=== PATIENT | male | born 1995 | race Two or more races ===

== ENCOUNTER 2020-02-09 08:59 | Emergency (ER) | payer SELFPAY ==
[2020-02-09] MEDS ORDERED: Ketorolac 30 MG/ML SDV IM ONE (09:18)
[2020-02-09] MEDS ORDERED: Cyclobenzaprine 10 MG Tab PO ONE (09:18)
--- NOTE | 2020-02-09 09:59 | EDM.PDOC ---
ED HPI GENERAL MEDICAL PROBLEM - General Chief Complaint: Back Pain or Injury Stated Complaint: BACK INJURY Time Seen by Provider: 02/09/20 09:52 Source of Information: Reports: Patient History Limitations: Reports: No Limitations - History of Present Illness INITIAL COMMENTS - FREE TEXT/NARRATIVE: 24-year-old male presents today for lower back pain. Patient is new to the gym developing when he went to lower the weight and felt intense pain in his lower back. He states he has pain mostly when trying to stand up which was in turn. Patient has any leg numbness weakness urinary symptoms or saddle anesthesia. Patient denies any direct blows injury to the back. Patient has no other complaints. back Pain Score (Numeric/FACES): 10 - Related Data Allergies Allergy/AdvReac Type Severity Reaction Status Date / Time No Known Allergies Allergy Verified 02/09/20 09:18 Home Meds: Home Meds Cyclobenzaprine HCl 5 mg PO Q8HR 7 Days #21 tablet 02/09/20 [Rx] Naproxen Sodium [Naproxen Sodium ER] 500 mg PO BID 7 Days #14 tablet.er 02/09/20 [Rx] Past Medical History - Past Health History Medical/Surgical History: Denies Medical/Surgical History Social & Family History - Family History Family Medical History: No Pertinent Family History - Caffeine Use Caffeine Use: Reports: Coffee, Energy Drinks, Soda - Recreational Drug Use Recreational Drug Use: No ED ROS GENERAL - Review of Systems Review Of Systems: See Below Constitutional: Reports: No Symptoms HEENT: Reports: No Symptoms Respiratory: Reports: No Symptoms Cardiovascular: Reports: No Symptoms Endocrine: Reports: No Symptoms GI/Abdominal: Reports: No Symptoms : Reports: No Symptoms Musculoskeletal: Reports: Back Pain Skin: Reports: No Symptoms Neurological: Reports: No Symptoms Psychiatric: Reports: No Symptoms Hematologic/Lymphatic: Reports: No Symptoms Immunologic: Reports: No Symptoms ED EXAM, GENERAL - Physical Exam Exam: See Below Exam Limited By: No Limitations General Appearance: Alert, WD/WN Head: Atraumatic Respiratory/Chest: No Respiratory Distress Back Exam: Normal Inspection, Full Range of Motion, Muscle Spasm. No: Paraspinal Tenderness, Vertebral Tenderness Neurological: Alert, Oriented, CN II-XII Intact, Normal Cognition Course - Vital Signs Last Recorded V/S: Last Vital Signs Temp 96.2 F L 02/09/20 09:04 Pulse 95 02/09/20 09:04 Resp 17 02/09/20 09:04 BP 140/80 02/09/20 09:04 Pulse Ox 97 02/09/20 09:04 - Orders/Labs/Meds Meds: Medications Discontinued Medications Generic Name Dose Route Start Last Admin Trade Name Rafael PRN Reason Stop Dose Admin Cyclobenzaprine HCl 5 mg 02/09/20 09:18 02/09/20 09:36 Flexeril PO 02/09/20 09:19 5 mg ONETIME ONE Administration Ketorolac Tromethamine 30 mg 02/09/20 09:18 02/09/20 09:37 Toradol IM 02/09/20 09:19 Not Given ONETIME ONE Departure - Departure Time of Disposition: 09:59 Disposition: Home, Self-Care 01 Condition: Good Clinical Impression: Lumbago - Discharge Information *PRESCRIPTION DRUG MONITORING PROGRAM REVIEWED*: Not Applicable *COPY OF PRESCRIPTION DRUG MONITORING REPORT IN PATIENT SANDRA: Not Applicable Instructions: Acute Back Pain, Adult, Back Exercises, [id number] Referrals: PCP,None [Primary Care Provider] - Additional Instructions: The following information is given to patients seen in the emergency department who are being discharged to home. This information is to outline your options for follow-up care. We provide all patients seen in our emergency department with a follow-up referral. The need for follow-up, as well as the timing and circumstances, are variable depending upon the specifics of your emergency department visit. If you don't have a primary care physician on staff, we will provide you with a referral. We always advise you to contact your personal physician following an emergency department visit to inform them of the circumstance of the visit and for follow-up with them and/or the need for any referrals to a consulting specialist. The emergency department will also refer you to a specialist when appropriate. This referral assures that you have the opportunity for follow-up care with a specialist. All of these measure are taken in an effort to provide you with optimal care, which includes your follow-up. Under all circumstances we always encourage you to contact your private physician who remains a resource for coordinating your care. When calling for follow-up care, please make the office aware that this follow-up is from your recent emergency room visit. If for any reason you are refused follow-up, please contact the [facility] Emergency Department at and asked to speak to the emergency department charge nurse. Please follow up with your primary care physician. If you do not have a primary care physician, see below: [facility] [address] [place] [address] [facility] [address] [place] [address] [facility] physician if you have any difficulty urinating increased pain in your legs or back please return to the ED. Sepsis Event Note (ED) - Evaluation Sepsis Screening Result: No Definite Risk - Focused Exam Vital Signs: Vital Signs Temp Pulse Resp BP Pulse Ox 02/09/20 09:04 96.2 F L 95 17 140/80 97 - Assessment/Plan Assessment:: Patient is a 24-year-old male who presents today for lower back pain s/p lifting weights. Patient has no tenderness and has good range of motion. Likely muscle spasm pain. Will provide pain control back exercise and have patient follow-up as outpatient.
== END 2020-02-09 10:16 | disposition home or self-care (01) ==
LOC: MW.ED 08:59
DX: M54.5 Low back pain (principal)
CPT/HCPCS: 99283; A9270

== ENCOUNTER 2021-03-16 11:09 | Emergency (ER) | payer SELFPAY ==
[2021-03-16] MEDS ORDERED: Ketorolac 60 MG/2 ML SDV IM ONE (12:56)
[2021-03-16] MEDS ORDERED: Orphenadrine 60 MG/2 ML Inj IM ONE (12:56)
[2021-03-16] MEDS ORDERED: Acetaminophen/oxyCODONE 325-5 MG Tab PO ONE (13:08)
== END 2021-03-16 14:03 | disposition home or self-care (01) ==
LOC: MW.ED 11:09
DX: M54.50 Low back pain, unspecified (principal)
CPT/HCPCS: 96372; 99283; A9270; J1885; J2360

== ENCOUNTER 2024-04-29 20:52 | Emergency (ER) | payer SELFPAY ==
[2024-04-29] MEDS: Diphtheria,Pertussis(Acell),Tetanus Vaccine 0.5 ML Syringe IM ONE (21:56)
[2024-04-29] MEDS: Ciprofloxacin 500 MG Tab PO ONE (21:56)
== END 2024-04-29 22:00 | disposition home or self-care (01) ==
LOC: MW.ED 20:52
DX: S91.331A Puncture wound without foreign body, right foot, initial encounter (principal); Z23 Encounter for immunization; W45.0XXA Nail entering through skin, initial encounter
CPT/HCPCS: 90471; 90715; 99283; A9270